=== PATIENT | female | born 1980 | race Two or more races ===

== ENCOUNTER 2025-03-13 18:02 | Emergency (ER) | payer BC, SELFPAY ==
[2025-03-13 18:04] VITALS: BMI 21.6
[2025-03-13 18:44] VITALS: BP 136/82; PULSE 89; RESP 18; TEMP 36.9; O2SAT 99
--- NOTE | 2025-03-13 19:16 | PD.EDANIML ---
ED Animal Bite RME/HPI General Chief Complaint: Animal Bite Stated Complaint: CAT BITE RIGHT MIDDLE FINGER Time Seen by Provider: 03/13/25 18:59 Arrival date/time: 03/13/25 18:02 44F with no significant PMH presents to ED with R middle finger cat bite from a wild cat. Patient not had a tetanus shot in the past 5 years. Limitations: no limitations Related Data Previous Rx's ?Medication ?Instructions ?Recorded amoxicillin 875 mg-potassium 1 tab PO BID 7 days #14 tabs 03/13/25 clavulanate 125 mg tablet Allergies Allergy/AdvReac Type Severity Reaction Status Date / Time No Known Allergies Allergy Verified 03/13/25 18:03 Review of Systems Review of Systems Systems Reviewed: All systems reviewed, normal except as documented Constitutional Constitutional: Reports system reviewed and no additional complaints, except as documented, Denies fever(s) and Denies headache(s) ENT Ears, Nose, Mouth, and Throat: Denies disequilibrium and Denies headache(s) Cardiovascular Cardiovascular: Reports system reviewed and no additional complaints, except as documented, Denies chest pain and Denies dyspnea Respiratory Respiratory: Reports system reviewed and no additional complaints, except as documented, Denies cough and Denies dyspnea Gastrointestinal Gastrointestinal: Reports system reviewed and no additional complaints, except as documented, Denies abdominal pain, Denies nausea and Denies vomiting Integumentary/Breasts Skin/Breast: Reports as per HPI and Reports skin pain Neurologic Neurologic: Reports system reviewed and no additional complaints, except as documented, Denies confusion, Denies disequilibrium and Denies headache(s) Psychiatric Psychiatric: Denies confusion Past Medical History Social History SMOKING STATUS: Never smoker ED Exam General Limitations: Present no limitations General appearance: Present alert and in no apparent distress Head Head exam: Present atraumatic Eye Eye exam: Present normal appearance, PERRL and EOMI ENT ENT exam: Present normal exam, normal oropharynx and mucous membranes moist Neck Neck exam: Present normal inspection, full ROM and trachea midline Chest Chest inspection: Present normal inspection and symmetric chest wall rise Respiratory Respiratory exam: Present normal lung sounds bilaterally Cardiovascular Cardiovascular exam: Present regular rate, normal rhythm and normal heart sounds Abdominal Exam Abdominal exam: Present soft and normal bowel sounds Extremities Exam Extremities exam: Present full ROM Expanded Upper Extremity Exam Hand exam: Present full ROM (R middle finger two puncture wounds) and tenderness Back Exam Back exam: Present normal inspection and full ROM Neurological Exam Neurological exam: Present alert, oriented X3 and CN II-XII intact Psychiatric Psychiatric exam: Present normal affect and normal mood Skin Skin exam: Present warm, dry, intact and normal color Course Quality Measures none Orders Category Date Time Status Wound Care NOW Care 03/13/25 19:00 Active Amoxicillin/Pot Clav 875 [Augmentin 875] Med 03/13/25 19:00 Discontinued 1 tab PO X1 ONE Rabies Immune Globulin/Thimer [Kedrab Inj] Med 03/13/25 19:30 Discontinued 900 iu IM X1 ONE Rabies Vaccine (Pcec)/Pf [Rabavert Rabies Vacc w/ Med 03/13/25 19:30 Discontinued Diluent] 2.5 unit IM .ONCE ONE TET,DIP/PERT AC (Adult)-Tdap [Boostrix Adult (Tdap) Med 03/13/25 19:00 Discontinued Vacc] 0.5 ml IMI .ONCE ONE Vital Signs Vital signs: Vital Signs Temperature 98.5 F 03/13/25 18:44 Pulse Rate 89 03/13/25 18:44 Respiratory Rate 18 03/13/25 18:44 Blood Pressure 136/82 H 03/13/25 18:44 Pulse Oximetry (%) 99 03/13/25 18:44 Oxygen Delivery Method Room Air 03/13/25 18:44 O2 at 99% on RA and WNLs Animal Bite MDM Narrative MDM Narrative:: 44F with no significant PMH presents to ED with R middle finger cat bite from a wild cat. Patient not had a tetanus shot in the past 5 years. Physical exam reveals two puncture wounds on R middle finger. Patient is afebrile, calm, and alert. Wound cleaned/irrigated and bandaged. Tdap and ABX prophylaxis given. Patient would like rabies series and so given. Patient data External records reviewed:: None Clinical information provided by:: patient Social determinants that could affect healthcare access:: none Patient has the following chronic illnesses:: none How is presenting disease/condition affected by chronic disease/condition?: no chronic disease Evaluation data The following diagnostics were reviewed and interpreted by me:: other (specify) (none) Lab and/or radiology exams considered but not ordered:: not ordered Interpretation Summary: n/a Medications / Prescriptions Medications or Prescriptions considered but not ordered:: ordered Medication administrations:: Medication Administration History Discontinued Medications Amoxicillin/Clavulanate Potassium (Amoxicillin/Pot Clav 875 Tablet) 1 tab PO X1 ONE Stop: 03/13/25 19:01 Diphtheria/Tetanus/Acell Pertussis (Diphth,Pertuss(Acell),Tet Vac 0.5 Ml Syr- Adult) 0.5 ml IMi .ONCE ONE Stop: 03/13/25 19:01 Rabies Immune Globulin (Rabies Imm Glob (Human) 150 Iu/Ml Vial 2ml) 900 iu IM X1 ONE Stop: 03/13/25 19:31 Rabies Vaccine Chick Embryo Cell (Rabies Vaccine (Pcec)/Pf 2.5 Unit/Ml Vial) 2.5 unit IM .ONCE ONE Stop: 03/13/25 19:31 above Consultations Consultation(s) initiated? (list below): No Diagnosis Differential diagnosis animal bite: bite by animal, cat bite, dog bite and rabies contact Most likely diagnosis given after review of the tests above:: cat bite Admission Indicated Admission indicated?: not indicated Admission Request Was there a request for admission?: No Disposition Plan Disposition Plan: Discharge Discharge Attestation Discharge Attestation: The patient and all family members were given an opportunity to ask questions and understood the discharge instructions. Discharge instructions specifically effects, indications for sooner follow up or return to the emergency department, and the expected course of current diagnosis. Patient condition: Stable Discharge Plan Plan Patient Disposition: HOME (Self Care) Discharge Disposition comment: Stable Prescriptions/Referrals Prescriptions/Med Rec: New amoxicillin-pot clavulanate 875-125 mg tablet 1 tab PO BID 7 Days Qty: 14 0RF Problem List Clinical Impression: Cat bite Patient/Caregiver Discharge Instructions Education Materials: ED Cat Bite Additional Instructions: Please follow-up with PCP within 24-48 hours and return immediately if symptoms worsen. Today is day 0. Come back day 3, 7, and 14 for additional vaccines. Print Language: Cambodian Stand Alone Forms: Patient Portal Info Letter JOAO/ZOILA Supervising Physician JOAO/ZOILA Supervising Physician: Dr. Urias
[2025-03-13] MEDS: AMOXICILLIN/POT CLAV 875 TABLET 1 TAB PO (20:24)
[2025-03-13] MEDS: DIPHTH,PERTUSS(ACELL),TET VAC 0.5 ML SYR- ADULT IMi (20:25)
[2025-03-13] MEDS: RABIES VACCINE (PCEC)/PF 2.5 UNIT/ML VIAL IM (20:27)
[2025-03-13] MEDS: RABIES IMM GLOB (HUMAN) 150 IU/ML VIAL 2ML 900 IU IM (20:31)
== END 2025-03-13 20:46 | disposition home or self-care (01) ==
LOC: SERX 20:25
PROVIDERS: Emergency Provider Emergency Medicine
DX: S61.252A Open bite of right middle finger without damage to nail, initial encounter (principal); W55.01XA Bitten by cat, initial encounter; Z23 Encounter for immunization; Z20.3 Contact with and (suspected) exposure to rabies
CPT/HCPCS: 90377; 90471; 90675; 90715; 96372; 99283; A9270

== ENCOUNTER 2025-03-16 12:18 | Emergency (ER) | payer BC, SELFPAY ==
[2025-03-16 12:19] VITALS: BMI 21.6
[2025-03-16 12:40] VITALS: BP 122/81; PULSE 88; RESP 16; TEMP 36.8; O2SAT 98; BMI 21.6
--- NOTE | 2025-03-16 12:45 | PD.EDADULT ---
ED General RME/HPI General Chief complaint: General Adult/Misc Complain Stated complaint: HERE FOR 2ND RABIES SHOT Time Seen by Provider: 03/16/25 12:40 Source: patient Arrival date/time: 03/16/25 12:18 44-year-old female with no known medical history presents to the emergency room with a chief complaint of needing her second rabies shot Mode of arrival: ambulatory Limitations: no limitations Related Data Previous Rx's ?Medication ?Instructions ?Recorded amoxicillin 875 mg-potassium 1 tab PO BID 7 days #14 tabs 03/13/25 clavulanate 125 mg tablet Allergies Allergy/AdvReac Type Severity Reaction Status Date / Time No Known Allergies Allergy Verified 03/16/25 12:21 Review of Systems Review of Systems Systems Reviewed: All systems reviewed, normal except as documented Constitutional Constitutional: Reports system reviewed and no additional complaints, except as documented, Denies fatigue, Denies fever(s), Denies headache(s) and Denies weakness Eyes Eyes: Reports system reviewed and no additional complaints, except as documented, Denies blurry vision and Denies change in vision ENT Ears, Nose, Mouth, and Throat: Reports system reviewed and no additional complaints, except as documented, Denies otalgia, Denies headache(s), Denies nasal congestion, Denies throat swelling and Denies vertigo Cardiovascular Cardiovascular: Reports system reviewed and no additional complaints, except as documented, Denies chest pain, Denies dyspnea and Denies dyspnea on exertion Respiratory Respiratory: Reports system reviewed and no additional complaints, except as documented, Denies chest congestion, Denies cough, Denies dyspnea, Denies dyspnea on exertion and Denies wheezing Gastrointestinal Gastrointestinal: Reports system reviewed and no additional complaints, except as documented, Denies abdominal pain, Denies cramping, Denies nausea and Denies vomiting Genitourinary Genitourinary: Reports system reviewed and no additional complaints, except as documented Musculoskeletal Musculoskeletal: Reports system reviewed and no additional complaints, except as documented and Denies back pain Integumentary/Breasts Skin/Breast: Reports system reviewed and no additional complaints, except as documented and Denies wounds Neurologic Neurologic: Reports system reviewed and no additional complaints, except as documented, Denies confusion, Denies headache(s), Denies lack of coordination, Denies vertigo and Denies weakness Psychiatric Psychiatric: Reports system reviewed and no additional complaints, except as documented, Denies anxiety, Denies confusion, Denies depression, Denies paranoia, Denies suicidal ideation and Denies tactile hallucinations Endocrine Endocrine: Reports system reviewed and no additional complaints, except as documented and Denies fatigue Hematologic/Lymphatic Hematologic/Lymphatic: Reports system reviewed and no additional complaints, except as documented and Denies lymphadenopathy Allergic/Immunologic Allergic/Immunologic: Reports system reviewed and no additional complaints, except as documented, Denies throat swelling, Denies urticaria and Denies wheezing Past Medical History Social History SMOKING STATUS: Never smoker ED Exam General Limitations: Present no limitations General appearance: Present alert and in no apparent distress Head Head exam: Present atraumatic Eye Eye exam: Present normal appearance, PERRL and EOMI ENT ENT exam: Present normal exam, normal oropharynx and mucous membranes moist Neck Neck exam: Present normal inspection, full ROM and trachea midline Chest Chest inspection: Present normal inspection and symmetric chest wall rise Respiratory Respiratory exam: Present normal lung sounds bilaterally Cardiovascular Cardiovascular exam: Present regular rate, normal rhythm and normal heart sounds Abdominal Exam Abdominal exam: Present soft and normal bowel sounds Extremities Exam Extremities exam: Present normal inspection and full ROM Back Exam Back exam: Present normal inspection and full ROM Neurological Exam Neurological exam: Present alert, oriented X3 and CN II-XII intact Psychiatric Psychiatric exam: Present normal affect and normal mood Skin Skin exam: Present warm, dry, intact and normal color Course Quality Measures none Orders Category Date Time Status Rabies Vaccine (Pcec)/Pf [Rabavert Rabies Vacc w/ Med 03/16/25 12:43 Discontinued Diluent] 2.5 unit IM .ONCE ONE Vital Signs Vital signs: Vital Signs Temperature 98.3 F 03/16/25 12:40 Pulse Rate 88 03/16/25 12:40 Respiratory Rate 16 03/16/25 12:40 Blood Pressure 122/81 03/16/25 12:40 Pulse Oximetry (%) 98 03/16/25 12:40 Oxygen Delivery Method Room Air 03/16/25 12:40 Discharge Plan Plan Patient Disposition: HOME (Self Care) Discharge Disposition comment: Stable Prescriptions/Referrals Prescriptions/Med Rec: No Action amoxicillin-pot clavulanate 875-125 mg tablet 1 tab PO BID 7 Days Qty: 14 0RF Problem List Clinical Impression: Encounter for repeat administration of rabies vaccination Patient/Caregiver Discharge Instructions Education Materials: What Vaccines Should You and Your Family Have Additional Instructions: Please follow-up with your primary care provider in the next 24 to 48 hours Your rabies vaccination was given please return for your next dose at your scheduled date For any evidence of worsening signs or symptoms return to the emergency room immediately Print Language: Azerbaijani Stand Alone Forms: Arleth Olmos Info., Patient Portal Info Letter PA/HEAD OF ETHICS AND COMPLIANCE Supervising Physician PA/HEAD OF ETHICS AND COMPLIANCE Supervising Physician: Dr. Ambrosio [facility] Narrative MDM hospital course: 44-year-old female with no known medical history presents to the emergency room with a chief complaint of needing her second rabies shot Patient is hemodynamically stable and in no apparent distress Physical examination shows an nonerythemic site where the bite occurred. There is no discharge there is no signs of infection. The patient denies any other signs or symptoms Second dose of the rabies vaccination was given Patient was discharged and educated to follow-up with primary care provider in the next 24 to 48 hours and return to the emergency room for any evidence of worsening signs or symptoms Clinical Information Provided by patient Medical Records Reviewed None Meds/Rx Considered, not Ordered None Labs/Rad/Tests considered, not Ordered None Chronic Illness/Social Conditions which may negatively complicate care or outcome(s)-explain: None or not applicable EKG EKG not done Lab Interpretation Labs: none Imaging Imaging interpretation: none Medication Administration(s) Medication Administration History Discontinued Medications Rabies Vaccine Chick Embryo Cell (Rabies Vaccine (Pcec)/Pf 2.5 Unit/Ml Vial) 2.5 unit IM .ONCE ONE Stop: 03/16/25 12:44 Medication given Diagnosis Differential diagnosis: Encounter for vaccination of rabies Most likely dx, and/or detailed dx discussion: Encounter for vaccination rabies Dispositon Disposition: Discharge Home
[2025-03-16] MEDS: RABIES VACCINE (PCEC)/PF 2.5 UNIT/ML VIAL IM (12:51)
== END 2025-03-16 13:41 | disposition home or self-care (01) ==
LOC: SERX 13:11
PROVIDERS: Emergency Provider Family Medicine; PCP Family Medicine
DX: Z20.3 Contact with and (suspected) exposure to rabies (principal); Z23 Encounter for immunization
CPT/HCPCS: 90471; 90675; 99282

== ENCOUNTER 2025-03-20 19:51 | Emergency (ER) | payer BC, SELFPAY ==
[2025-03-20 19:52] VITALS: BMI 21.6
[2025-03-20 21:04] VITALS: BP 136/87; PULSE 87; RESP 18; TEMP 37.2; O2SAT 98
--- NOTE | 2025-03-20 21:34 | PD.EDANIML ---
ED Animal Bite RME/HPI General Chief Complaint: General Adult/Misc Complain Stated Complaint: here for third rabies shot Time Seen by Provider: 03/20/25 21:11 Arrival date/time: 03/20/25 19:51 44F with no significant PMH presents to ED with needing 3rd rabies vaccine. No negative reactions so far. Limitations: no limitations Related Data Allergies Allergy/AdvReac Type Severity Reaction Status Date / Time No Known Allergies Allergy Verified 03/16/25 12:21 Review of Systems Review of Systems Systems Reviewed: All systems reviewed, normal except as documented Constitutional Constitutional: Reports system reviewed and no additional complaints, except as documented, Denies fever(s) and Denies headache(s) ENT Ears, Nose, Mouth, and Throat: Denies disequilibrium and Denies headache(s) Cardiovascular Cardiovascular: Reports system reviewed and no additional complaints, except as documented, Denies chest pain and Denies dyspnea Respiratory Respiratory: Reports system reviewed and no additional complaints, except as documented, Denies cough and Denies dyspnea Gastrointestinal Gastrointestinal: Reports system reviewed and no additional complaints, except as documented, Denies abdominal pain, Denies nausea and Denies vomiting Neurologic Neurologic: Reports system reviewed and no additional complaints, except as documented, Denies confusion, Denies disequilibrium and Denies headache(s) Psychiatric Psychiatric: Denies confusion Past Medical History Social History SMOKING STATUS: Never smoker ED Exam General Limitations: Present no limitations General appearance: Present alert and in no apparent distress Head Head exam: Present atraumatic Eye Eye exam: Present normal appearance, PERRL and EOMI ENT ENT exam: Present normal exam, normal oropharynx and mucous membranes moist Neck Neck exam: Present normal inspection, full ROM and trachea midline Chest Chest inspection: Present normal inspection and symmetric chest wall rise Respiratory Respiratory exam: Present normal lung sounds bilaterally Cardiovascular Cardiovascular exam: Present regular rate, normal rhythm and normal heart sounds Abdominal Exam Abdominal exam: Present soft and normal bowel sounds Extremities Exam Extremities exam: Present normal inspection and full ROM Back Exam Back exam: Present normal inspection and full ROM Neurological Exam Neurological exam: Present alert, oriented X3 and CN II-XII intact Psychiatric Psychiatric exam: Present normal affect and normal mood Skin Skin exam: Present warm, dry, intact and normal color Course Quality Measures none Orders Category Date Time Status Rabies Vaccine (Pcec)/Pf [Rabavert Rabies Vacc w/ Med 03/20/25 21:13 Discontinued Diluent] 2.5 unit IM .ONCE ONE Vital Signs Vital signs: Vital Signs Temperature 99 F 03/20/25 21:04 Pulse Rate 87 03/20/25 21:04 Respiratory Rate 18 03/20/25 21:04 Blood Pressure 136/87 H 03/20/25 21:04 Pulse Oximetry (%) 98 03/20/25 21:04 O2 at 98% on RA and WNLs Animal Bite MDM Narrative MDM Narrative:: 44F with no significant PMH presents to ED with needing 3rd rabies vaccine. No negative reactions so far. Physical exam reveals well-appearing female. . Patient is afebrile, calm, and alert. Meds given. Patient data External records reviewed:: [facility] previous records Clinical information provided by:: patient Social determinants that could affect healthcare access:: none Patient has the following chronic illnesses:: none How is presenting disease/condition affected by chronic disease/condition?: no chronic disease Evaluation data The following diagnostics were reviewed and interpreted by me:: other (specify) (none) Lab and/or radiology exams considered but not ordered:: not ordered Interpretation Summary: n/a Medications / Prescriptions Medications or Prescriptions considered but not ordered:: ordered Medication administrations:: Medication Administration History Discontinued Medications Rabies Vaccine Chick Embryo Cell (Rabies Vaccine (Pcec)/Pf 2.5 Unit/Ml Vial) 2.5 unit IM .ONCE ONE Stop: 03/20/25 21:14 above Consultations Consultation(s) initiated? (list below): No Diagnosis Differential diagnosis animal bite: bite by animal, cat bite, dog bite, rabies contact and other (rabies vaccine) Most likely diagnosis given after review of the tests above:: rabies vaccine Admission Indicated Admission indicated?: not indicated Admission Request Was there a request for admission?: No Disposition Plan Disposition Plan: Discharge Discharge Attestation Discharge Attestation: The patient and all family members were given an opportunity to ask questions and understood the discharge instructions. Discharge instructions specifically effects, indications for sooner follow up or return to the emergency department, and the expected course of current diagnosis. Patient condition: Stable Discharge Plan Plan Patient Disposition: HOME (Self Care) Discharge Disposition comment: Stable Problem List Clinical Impression: Encounter for repeat administration of rabies vaccination Patient/Caregiver Discharge Instructions Additional Instructions: Please follow-up with PCP within 24-48 hours and return immediately if symptoms worsen. Return in 1 week (03/27/25) for last rabies vaccine. Print Language: Ivorian Stand Alone Forms: Patient Portal Info Letter PA/SERVICE CONSULTANT Supervising Physician PA/SERVICE CONSULTANT Supervising Physician: Dr. Hein
[2025-03-20] MEDS: RABIES VACCINE (PCEC)/PF 2.5 UNIT/ML VIAL IM (22:01)
== END 2025-03-20 22:16 | disposition home or self-care (01) ==
LOC: SERX 21:32
PROVIDERS: Emergency Provider Emergency Medicine; PCP Internal Medicine
DX: Z20.3 Contact with and (suspected) exposure to rabies (principal); Z23 Encounter for immunization
CPT/HCPCS: 90471; 90675; 99282

== ENCOUNTER 2025-03-27 23:47 | Emergency (ER) | payer BC, SELFPAY ==
[2025-03-27 23:49] VITALS: BMI 21.6
[2025-03-28 00:12] VITALS: BP 116/89; PULSE 88; RESP 18; TEMP 36.9; O2SAT 99
--- NOTE | 2025-03-28 00:40 | PD.EDANIML ---
ED Animal Bite RME/HPI General Chief Complaint: General Adult/Misc Complain Stated Complaint: NEEDS LAST RABIES SHOT Time Seen by Provider: 03/28/25 00:13 Arrival date/time: 03/27/25 23:47 44F with no significant PMH presents to ED with needing 4th and final rabies vaccine. No negative reactions so far. Limitations: no limitations Related Data Allergies Allergy/AdvReac Type Severity Reaction Status Date / Time No Known Allergies Allergy Verified 03/27/25 23:50 Review of Systems Review of Systems Systems Reviewed: All systems reviewed, normal except as documented Constitutional Constitutional: Reports system reviewed and no additional complaints, except as documented, Denies fever(s) and Denies headache(s) ENT Ears, Nose, Mouth, and Throat: Denies disequilibrium and Denies headache(s) Cardiovascular Cardiovascular: Reports system reviewed and no additional complaints, except as documented, Denies chest pain and Denies dyspnea Respiratory Respiratory: Reports system reviewed and no additional complaints, except as documented, Denies cough and Denies dyspnea Gastrointestinal Gastrointestinal: Reports system reviewed and no additional complaints, except as documented, Denies abdominal pain, Denies nausea and Denies vomiting Neurologic Neurologic: Reports system reviewed and no additional complaints, except as documented, Denies confusion, Denies disequilibrium and Denies headache(s) Psychiatric Psychiatric: Denies confusion Past Medical History Social History SMOKING STATUS: Never smoker ED Exam General Limitations: Present no limitations General appearance: Present alert and in no apparent distress Head Head exam: Present atraumatic Eye Eye exam: Present normal appearance, PERRL and EOMI ENT ENT exam: Present normal exam, normal oropharynx and mucous membranes moist Neck Neck exam: Present normal inspection, full ROM and trachea midline Chest Chest inspection: Present normal inspection and symmetric chest wall rise Respiratory Respiratory exam: Present normal lung sounds bilaterally Cardiovascular Cardiovascular exam: Present regular rate, normal rhythm and normal heart sounds Abdominal Exam Abdominal exam: Present soft and normal bowel sounds Extremities Exam Extremities exam: Present normal inspection and full ROM Back Exam Back exam: Present normal inspection and full ROM Neurological Exam Neurological exam: Present alert, oriented X3 and CN II-XII intact Psychiatric Psychiatric exam: Present normal affect and normal mood Skin Skin exam: Present warm, dry, intact and normal color Course Quality Measures none Orders Category Date Time Status Rabies Vaccine (Pcec)/Pf [Rabavert Rabies Vacc w/ Med 03/28/25 00:13 Discontinued Diluent] 2.5 unit IM .ONCE ONE Vital Signs Vital signs: Vital Signs Temperature 98.5 F 03/28/25 00:12 Pulse Rate 88 03/28/25 00:12 Respiratory Rate 18 03/28/25 00:12 Blood Pressure 116/89 H 03/28/25 00:12 Pulse Oximetry (%) 99 03/28/25 00:12 Oxygen Delivery Method Room Air 03/28/25 00:12 O2 at 99% on RA and WNLs Animal Bite MDM Narrative MDM Narrative:: 44F with no significant PMH presents to ED with needing 4th and final rabies vaccine. No negative reactions so far. Physical exam reveals well-appearing female. Patient is afebrile, calm, and alert. Meds given. Patient data External records reviewed:: [facility] previous records Clinical information provided by:: patient Social determinants that could affect healthcare access:: none Patient has the following chronic illnesses:: none How is presenting disease/condition affected by chronic disease/condition?: no chronic disease Evaluation data The following diagnostics were reviewed and interpreted by me:: other (specify) (none) Lab and/or radiology exams considered but not ordered:: not ordered Interpretation Summary: n/a Medications / Prescriptions Medications or Prescriptions considered but not ordered:: ordered Medication administrations:: Medication Administration History Discontinued Medications Rabies Vaccine Chick Embryo Cell (Rabies Vaccine (Pcec)/Pf 2.5 Unit/Ml Vial) 2.5 unit IM .ONCE ONE Stop: 03/28/25 00:14 above Consultations Consultation(s) initiated? (list below): No Diagnosis Differential diagnosis animal bite: bite by animal, cat bite, dog bite, rabies contact and other (encounter for rabies vaccine) Most likely diagnosis given after review of the tests above:: encounter for rabies vaccine Admission Indicated Admission indicated?: not indicated Admission Request Was there a request for admission?: No Disposition Plan Disposition Plan: Discharge Discharge Attestation Discharge Attestation: The patient and all family members were given an opportunity to ask questions and understood the discharge instructions. Discharge instructions specifically effects, indications for sooner follow up or return to the emergency department, and the expected course of current diagnosis. Patient condition: Stable Discharge Plan Plan Patient Disposition: HOME (Self Care) Discharge Disposition comment: Stable Problem List Clinical Impression: Encounter for administration of vaccine Patient/Caregiver Discharge Instructions Additional Instructions: Please follow-up with PCP within 24-48 hours and return immediately if symptoms worsen. Print Language: Kinyarwanda Stand Alone Forms: Patient Portal Info Letter PA/DRUM STOCK CLERK Supervising Physician PA/DRUM STOCK CLERK Supervising Physician: Dr. Burris
[2025-03-28] MEDS: RABIES VACCINE (PCEC)/PF 2.5 UNIT/ML VIAL IM (00:49)
== END 2025-03-28 01:36 | disposition home or self-care (01) ==
LOC: SERX 03-28 01:02
PROVIDERS: Emergency Provider Emergency Medicine; PCP Internal Medicine
DX: Z20.3 Contact with and (suspected) exposure to rabies (principal); Z23 Encounter for immunization
CPT/HCPCS: 90471; 90675; 99282